=== PATIENT | male | born 1975 | race Caucasian/White ===

== ENCOUNTER 2017-03-26 22:55 | Day surgery (SDC) | payer BC ==
[2017-03-26] MEDS ORDERED: Lactated Ringers 1,000 ML IV SCH ×2 (23:15→23:45)
[2017-03-26] MEDS ORDERED: Sodium Chloride 0.9% 10 ML Syringe FLUSH PRN (23:42)
[2017-03-26] MEDS ORDERED: Sodium Chloride 0.9% 2.5 ML Syringe FLUSH PRN (23:42)
--- NOTE | 2017-03-26 23:46 | PCM.PREANE ---
Preanesthetic Assessment - Anesthesia/Transfusion/Family Hx Anesthesia History: No Prior Anesthesia Family History of Anesthesia Reaction: No - Review of Systems General: No Symptoms Pulmonary: No Symptoms Cardiovascular: No Symptoms Gastrointestinal: No Symptoms Neurological: No Symptoms Other: Reports: None - Physical Assessment O2 Sat by Pulse Oximetry: 98 Respiratory Rate: 18 Vital Signs: Last Vital Signs Temp 97.5 F 03/26/17 23:04 Pulse 75 03/26/17 23:04 Resp 18 03/26/17 23:04 BP 126/74 03/26/17 23:04 Pulse Ox 98 03/26/17 23:04 Height: 6 ft Weight: 89 kg ASA Class: 2E Mental Status: Alert & Oriented x3 Airway Class: Mallampati = 2 Dentition: Reports: Normal Dentition Thyro-Mental Finger Breadths: 3 Mouth Opening Finger Breadths: 3 ROM/Head Extension: Full Lungs: Clear to Auscultation, Normal Respiratory Effort Cardiovascular: Regular Rate, Regular Rhythm - Allergies Allergies/Adverse Reactions: Allergies Allergy/AdvReac Type Severity Reaction Status Date / Time No Known Allergies Allergy Verified 03/26/17 23:03 - Acknowledgements Anesthesia Type Planned: General Anesthesia Pt an Appropriate Candidate for the Planned Anesthesia: Yes Alternatives and Risks of Anesthesia Discussed w Pt/Guardian: Yes Pt/Guardian Understands and Agrees with Anesthesia Plan: Yes PreAnesthesia Questionnaire HEENT History: Reports: None Cardiovascular History: Reports: None Respiratory History: Reports: None Gastrointestinal History: Reports: None Genitourinary History: Reports: None Musculoskeletal History: Reports: None Neurological History: Reports: None Psychiatric History: Reports: Other (See Below) Other Psychiatric History: Sleeping Disorder Endocrine/Metabolic History: Reports: None Hematologic History: Reports: None Immunologic History: Reports: None Oncologic (Cancer) History: Reports: None Dermatologic History: Reports: None - Infectious Disease History Infectious Disease History: Reports: None - Past Surgical History Head Surgeries/Procedures: Reports: None - SUBSTANCE USE Smoking Status *Q: Never Smoker Recreational Drug Use History: No - HOME MEDS Home Medications: Home Meds FLUoxetine HCl [Prozac] 20 mg PO DAILY 03/26/17 [History] traZODone 50 mg PO ONETIME 03/26/17 [History] - CURRENT (IN HOUSE) MEDS Current Meds: Current Medications Lactated Ringer's (Ringers, Lactated) 1,000 mls @ 125 mls/hr IV ASDIRECTED MARCOS Last Admin: 03/26/17 23:13 Dose: 125 mls/hr
[2017-03-26] MEDS ORDERED: cefOXitin 2 GM in Premix Bag 1 BAG IV ONE (23:52)
[2017-03-26] MEDS ORDERED: Succinylcholine/Normal Saline 200 MG/10 ML Syringe ONE (23:54)
[2017-03-26] MEDS ORDERED: Lidocaine 2% 5 ML SDV ONE (23:54)
[2017-03-26] MEDS ORDERED: Rocuronium 10 MG/ML 10 ML Syringe ONE (23:54)
[2017-03-26] MEDS ORDERED: Ondansetron 4 MG/2 ML SDV ONE (23:54)
[2017-03-26] MEDS ORDERED: Midazolam 1 MG/ML 2 ML SDV ONE (23:55)
[2017-03-26] MEDS ORDERED: Propofol 200 MG/20 ML SDV ONE (23:55)
[2017-03-26] MEDS ORDERED: fentaNYL 100 MCG/2 ML SDV ONE (23:55)
--- NOTE | 2017-03-26 23:55 | PCM.SN ---
- Free Text/Narrative Note: pt seen, chart reviewed; acute appendicitis, to or for lap vs open appendectomy , rb dw pt re bleeding/infection/damage to nearby organs; pt concured and proceed; mefoxin 2 g iv and consent for surgery; [id number]
[2017-03-27] MEDS ORDERED: Bupivacaine 0.25%/EPINEPHrine 1:200,000 10 ML SDV ONE (00:02)
[2017-03-27] MEDS ORDERED: Levofloxacin/Dextrose 5%-Water 150 ML IV ONE (00:21)
[2017-03-27] MEDS ORDERED: Dexamethasone 4 MG/ML 5 ML MDV ONE (00:48)
[2017-03-27] MEDS ORDERED: ePHEDrine 50 MG/ML SDV ONE (00:54)
[2017-03-27] MEDS ORDERED: HYDROmorphone 2 MG/ML Syringe ONE (01:20)
[2017-03-27] MEDS ORDERED: Neostigmine Methylsulfate 1 MG/ML 5 ML Syringe ONE (01:21)
[2017-03-27] MEDS ORDERED: fentaNYL 100 MCG/2 ML SDV ONE (01:26)
[2017-03-27] MEDS ORDERED: Octyl 2-Cyanoacrylate 1 Tube ONE (01:28)
--- NOTE | 2017-03-27 01:40 | PCM.OPNOTE ---
- General Post-Op/Procedure Note Date of Surgery/Procedure: 03/27/17 Operative Procedure(s): lap appy Findings: appendix is hyperemic and hardened cw acute appendicitis; gross perf is not observed; [id number] Pre Op Diagnosis: acute appendicitis Post-Op Diagnosis: Same Anesthesia Technique: General ET Tube Primary Surgeon: Randolph Lew Pathology: sent Complications: None Condition: Fair
[2017-03-27] MEDS ORDERED: fentaNYL 100 MCG/2 ML SDV IVPUSH PRN (01:43)
[2017-03-27] MEDS ORDERED: Ondansetron 4 MG/2 ML SDV IVPUSH PRN (01:43)
--- NOTE | 2017-03-27 02:19 | PCM.POSTAN ---
POST ANESTHESIA ASSESSMENT - MENTAL STATUS Mental Status: Alert, Oriented - RESPIRATORY Respiratory Status: Respiratory Rate WNL, Airway Patent, O2 Saturation Stable - CARDIOVASCULAR CV Status: Pulse Rate WNL, Blood Pressure Stable - GASTROINTESTINAL GI Status: No Symptoms - POST OP HYDRATION Hydration Status: Adequate & Stable
[2017-03-27] MEDS: Lactated Ringers 1,000 ML IV SCH ×2 (02:23→06:52)
[2017-03-27] MEDS: Acetaminophen/oxyCODONE 325-7.5 MG Tab PO PRN ×2 (02:32→08:35)
--- NOTE | 2017-03-27 06:09 | HP ---
DATE OF : 1975 PRIMARY CARE PHYSICIAN: None PCP This is a consult from Jailene Verdin. Concerning question is acute appendicitis. HISTORY OF PRESENT ILLNESS: The patient is a 41-year-old gentleman complaining of a 12-hour history of acute onset of right lower quadrant pain. Workup in the emergency room and CAT scan shows acute appendicitis and the patient was then transferred to here for further management. PAST MEDICAL HISTORY: Significant for no diabetes, [place], CVA, or hypertension. SOCIAL HISTORY: The patient is not a smoker. Has some alcohol use. FAMILY HISTORY: Noncontributory. ALLERGY: Please refer nursing notes for details. MEDICATION: Please refer nursing notes for details. REVIEW OF SYSTEMS: Same as history of present illness. PHYSICAL EXAMINATION: GENERAL: A very nice gentleman, does not carry a smile though, in no acute distress. HEENT: Normocephalic, atraumatic. Sclerae anicteric. LUNGS: Clear to auscultation. HEART: Regular rate and rhythm. ABDOMEN: Soft, nondistended. No pulsating tender midline abdominal structure. No surgical scar. No hernia. Rovsing sign is negative. Exquisite tenderness at the McBurney's point and no rebound tenderness and pain upon jumping up and down. LABORATORY DATA: White count is 12. CAT scan is acute appendicitis. IMPRESSION: History and physical and imaging study and blood work consistent with acute appendicitis. The patient would benefit from timely surgical intervention and offered the patient laparoscopic possible open appendectomy. Risks and benefits discussed with the patient including bleeding, infection, and damage to nearby organs and postop cause. The patient concurred to proceed with plan. KARLY / OSVALDO /[id number]
--- NOTE | 2017-03-27 06:12 | OR ---
SURGEON: Randolph Lew MD DATE OF PROCEDURE: 03/27/2017 PREOP DIAGNOSIS: Acute appendicitis. POSTOP DIAGNOSIS: Acute appendicitis. PROCEDURE PERFORMED: Laparoscopic appendectomy. COMPLICATIONS: None. FINDINGS: Appendix is interacting with surrounding organ and hyperemic consistent with acute appendicitis. Gross perforation is not observed. The patient was taken to the operating room and placed in the supine position. Following induction of general endotracheal anesthesia, the patient's abdomen was prepped and draped in the sterile fashion. A time-out has been called. The patient was identified. The procedure was identified. The antibiotics were identified. The procedure then proceeded. The abdomen was prepped and draped in a standard fashion. After assessment of appropriate landmarks, a 12 millimeter trocar was inserted supraumbilically using Optiview and pneumoperitoneum was then achieved. This was followed with placement of 5 millimeter port in the right upper quadrant and another 5 millimeter port infraumbilically. The camera was inserted supraumbilical site and two laparoscopic [place] retractors were then inserted through the other two sites. Following the cecum, the appendix was located. The appendix was then lifted up, and using a GI stapler the appendix was amputated at the base. And using the GI stapler, the mesoappendix was then amputated. The appendix was retrieved by an endoscopic bag and sent for pathologist. Surgicell was placed for hemostasis. This was then followed by re-insertion of the camera to examine the staple line, and hemostasis. The trocars were then removed. The umbilical site was closed with 2-0 Vicryl deep stitch and 4 -0 Vicryl and Dermabond; the other 2 5 mm port sites were closed with 4-0 Vicryl and Dermabond. The patient was then awakened, extubated, and transferred to the recovery room in hemodynamically stable condition. Prior to closing, sponge count and instrument count was correct. Dr. Lew was present throughout the whole procedure. As always, thank you for the kind referral. KARLY RILEY /[id number] NANO
--- NOTE | 2017-03-27 06:49 | PCM48HPAN ---
Post Anesthesia Note - EVALUATION WITHIN 48HRS OF ANESTHETIC Vital Signs in Normal Range: Yes Patient Participated in Evaluation: Yes Respiratory Function Stable: Yes Airway Patent: Yes Cardiovascular Function Stable: Yes Hydration Status Stable: Yes Pain Control Satisfactory: Yes Nausea and Vomiting Control Satisfactory: Yes Mental Status Recovered: Yes
[2017-03-27 08:06] VITALS: BP 118/68
== END 2017-03-27 10:07 | disposition home or self-care (01) ==
LOC: MW.ED 22:55 → MW.SDS 23:35 → MW.MS 03-27 01:48 → MW.SDS 03-27 10:07
PROVIDERS: ATTEND Surgery
DX: K35.80 Unspecified acute appendicitis (principal); Z79.899 Other long term (current) drug therapy
CPT/HCPCS: 44970; 88304; 96365; 99285; A9270; J1100; J1170; J2250; J2405; J3010; J7120; 00840; J2704